=== PATIENT | female | born 2005 | race Caucasian/White ===

== ENCOUNTER 2023-09-15 12:27 | Emergency (ER) | payer OTHER, SELFPAY ==
[2023-09-15 12:59] VITALS: BP 120/61; PULSE 84; RESP 16; TEMP 36.3; O2SAT 97; BMI 43.7
--- NOTE | 2023-09-15 13:07 | ED.GENADULT ---
HPI - General Adult General Chief complaint: Upper Respiratory Symptoms Stated complaint: lightheaded dizzy sent from work connection Related Data Allergies Allergy/AdvReac Type Severity Reaction Status Date / Time No Known Allergies Allergy Verified 09/15/23 13:09 [facility] Social History Social History Advance Directives: No Advance Directives Information Provided: No Physical Exam ED Vital Signs: Vital Signs - 24 hr 09/15/23 12:59 Temperature 97.4 F Pulse Rate 84 Respiratory Rate 16 Blood Pressure 120/61 Pulse Oximetry 97 Oxygen Delivery Method Room Air BMI result Body Mass Index 43.7 Course Course Course Narrative: RME- 18-year-old female presents for evaluation of nausea, congestion, body aches lightheadedness. She reports that she presented to work connections and had labs drawn 30 minutes prior to arrival. I cannot visualize them in the computer. Plan for viral swabs Discharge Plan Discharge Clinical Impression: Dizziness Patient Disposition: Left Without Being Seen Interventions: LWBS Worksheet Last Done: 09/15/23 16:58 Discharge Date/Time: 09/15/23 16:20
== END 2023-09-15 16:20 | disposition left against medical advice (07) ==
PROVIDERS: Emergency Provider Internal Medicine
DX: R42 Dizziness and giddiness (principal)
CPT/HCPCS: 99281